=== PATIENT | female | born 1950 | race American Indian/Alaskan Native ===

== ENCOUNTER 2016-07-06 19:54 | Emergency (ER) | payer SELFPAY ==
[2016-07-06 22:14] VITALS: BP 153/74
== END 2016-07-07 00:10 | disposition left against medical advice (07) ==
LOC: ED 19:54
DX: R42 Dizziness and giddiness (principal); H53.8 Other visual disturbances; Z53.21 Procedure and treatment not carried out due to patient leaving prior to being seen by health care provider

== ENCOUNTER 2017-12-17 09:14 | Outpatient (CLI) | payer MEDICARE ==
--- NOTE | 2017-12-17 16:13 | XRay Report ---
FINAL REPORT EXAM: XR SHOULDER 2+V LT HISTORY: PAIN TECHNIQUE: Frontal and Y-views left shoulder Comparison: None FINDINGS: The bony structures are without evidence of fracture, subluxation, lytic or blastic change or periosteal reaction. The soft tissues are unremarkable. IMPRESSION: 1. No plain film evidence of bony or soft tissue abnormality of the left shoulder. If further imaging is required, MRI may be helpful.
== END 2017-12-17 09:15 | disposition home or self-care (01) ==
LOC: XRAY 09:14
PROVIDERS: ATTEND Internal Medicine
DX: M25.512 Pain in left shoulder (principal); Z90.710 Acquired absence of both cervix and uterus